=== PATIENT | male | born 1965 | race Caucasian/White ===

== ENCOUNTER 2019-05-08 06:52 | Inpatient (IN) | payer OTHER ==
[2019-05-08] MEDS: SOD CHLORIDE 0.9% 100 ML, TRANEXAMIC ACID 3,000 MG IRR (06:00)
[2019-05-08] MEDS: CEFAZOLIN 2 GM/50 ML (PMX) 50 ML IVPB (06:00)
[2019-05-08] MEDS: GABAPENTIN 300 MG CAP PO ×2 (08:00→20:43)
[2019-05-08] MEDS: DEXAMETHASONE 1 MG TAB PO (08:00)
[2019-05-08] MEDS: LACTATED RINGER'S 1,000 ML IV ×3 (08:17→22:00)
[2019-05-08] MEDS ORDERED: TRANEXAMIC ACID 1GM/100ML(PMX) 0 ML (08:55)
[2019-05-08] MEDS ORDERED: ROCURONIUM 50 MG INJ (08:55)
[2019-05-08] MEDS ORDERED: PROPOFOL 20 ML (08:55)
[2019-05-08] MEDS ORDERED: ROPIVACAINE 0.5 % 30 ML VIAL (08:55)
[2019-05-08] MEDS ORDERED: FENTAnyl 50 MCG/ML VIAL (08:55)
[2019-05-08] MEDS ORDERED: MIDAZOLAM 1 MG/ML 2 ML INJ (08:55)
[2019-05-08] MEDS ORDERED: CEFAZOLIN 1 GM INJ (08:55)
[2019-05-08] MEDS ORDERED: TRANEXAMIC ACID 1GM/100ML(PMX) 200 ML (09:42)
[2019-05-08] MEDS: TRANEXAMIC ACID 1GM/100ML(PMX) 100 ML IVPB (10:02)
[2019-05-08] MEDS ORDERED: HETASTARCH 6% NACL 500 ML (10:24)
[2019-05-08] MEDS: BUPIVACAINE 0.5% (SDV) 30 ML, morphine SULFATE (PF) 8 MG, EPINEPHrine 0.3 MG, KETOROLAC... IRR (10:39)
[2019-05-08] MEDS: THROMBIN 20,000 UNIT VIAL (10:39)
[2019-05-08] MEDS: POLYMYXIN/BACITRACIN 1L IRRIG IRR (10:40)
[2019-05-08] MEDS: CA CHLORIDE 10% 10 ML SYRINGE (10:40)
[2019-05-08] MEDS ORDERED: morphine 2 MG INJ IV ×2 (11:00)
[2019-05-08] MEDS ORDERED: HYDROmorphONE 0.5 MG/0.5 ML SYG IV ×2 (11:00)
[2019-05-08] MEDS ORDERED: HYDROCODONE/APAP (5/325) TAB PO (11:00)
[2019-05-08] MEDS ORDERED: LABETALOL HCL 20MG INJ IV (11:00)
[2019-05-08] MEDS ORDERED: ONDANSETRON 4 MG INJ IV ×2 (11:00)
[2019-05-08] MEDS ORDERED: DIPHENHYDRAMINE 50 MG INJ IV ×3 (11:00→12:00)
[2019-05-08] MEDS ORDERED: NALBUPHINE HCL (10 MG/1 ML) INJ IV (11:00)
[2019-05-08] MEDS ORDERED: OXYCODONE/ACETAMINOPHEN (5/325) TAB PO (11:00)
[2019-05-08] MEDS ORDERED: EPHEDrine 25 MG/5 ML SYG IV (11:00)
[2019-05-08] MEDS ORDERED: MEPERIDINE 25 MG INJ IV (11:00)
[2019-05-08] MEDS ORDERED: KETOROLAC 30 MG INJ IV (11:00)
[2019-05-08] MEDS ORDERED: NALOXONE (0.4 MG/ML) INJ IV (11:00)
[2019-05-08] MEDS ORDERED: FENTAnyl 50 MCG/ML VIAL IV ×2 (11:00)
[2019-05-08] MEDS ORDERED: HYDROmorphONE 1 MG/5 ML IV SYRINGE IV ×2 (11:00)
[2019-05-08] MEDS ORDERED: METOCLOPRAMIDE 10 MG INJ IV (11:00)
[2019-05-08] MEDS ORDERED: ACETAMINOPHEN 500 MG TAB PO (11:00)
[2019-05-08] MEDS ORDERED: KETOROLAC 30 MG INJ (11:07)
[2019-05-08] MEDS ORDERED: ONDANSETRON 4 MG INJ (11:07)
[2019-05-08] MEDS ORDERED: METOCLOPRAMIDE 10 MG INJ (11:07)
[2019-05-08] MEDS ORDERED: DEXAMETHASONE 4 MG/ML 5 ML INJ (11:07)
[2019-05-08] MEDS ORDERED: EPHEDrine 25 MG/5 ML SYG ×2 (11:42)
[2019-05-08] MEDS ORDERED: PHENYLephrine (100 MCG/ML) 10ML SYG (11:42)
[2019-05-08] MEDS ORDERED: GLYCOPYRROLATE 0.4 MG INJ (12:08)
[2019-05-08] MEDS ORDERED: NEOSTIGMINE 3 MG/3 ML SYRINGE (12:08)
[2019-05-08] MEDS: CEFAZOLIN 1 GM/50 ML (PMX) 50 ML IVPB ×2 (12:32→21:17)
[2019-05-08 12:49] LABS: ADD MAN DIFF? NO
[2019-05-08 12:50] LABS: WHITE BLOOD COUNT 10.1 10^3/ul (4.8-10.8)
[2019-05-08 12:50] LABS: ABNORMAL IP MESSAGE 1; BASOPHILS % 0.4 % (0.0-2.0); EOSINOPHILS % 0.2 % (0.0-7.0); HEMATOCRIT 30.6 % (42.0-52.0); HEMOGLOBIN 9.8 g/dl (14.0-18.0); LYMPHOCYTES # 0.3 10^3/ul (0.8-2.9); LYMPHOCYTES % 3.1 % (15.0-51.0); MEAN CORPUSCULAR VOLUME 96.8 fl (82.0-101.0); MONOCYTE # 0.2 10^3/ul (0.3-0.9); MONOCYTES % 1.9 % (0.0-11.0); NEUTROPHIL # 9.4 10^3/ul (1.6-7.5); PLATELET COUNT 239 10^3/UL (140-415); POSITIVE DIFF @See below; RED BLOOD COUNT 3.16 10^6/ul (4.70-6.10); RED CELL DISTRIBUTION WIDTH 12.6 % (11.5-14.5)
[2019-05-08] MEDS: ACETAMINOPHEN 1000MG/100ML IV 100 ML IVPB ×2 (12:59→20:42)
[2019-05-08] MEDS: DEXAMETHASONE 2 MG TAB PO ×2 (14:32→17:21)
[2019-05-08] MEDS: oxyCODONE 5 MG TAB PO ×3 (16:24→22:19)
[2019-05-08] MEDS: SENNA/DOCUSATE NA (8.6MG/50MG) TAB PO (20:42)
[2019-05-09] MEDS: DEXAMETHASONE 2 MG TAB PO ×2 (00:06→06:14)
[2019-05-09] MEDS: HYDROmorphONE 1 MG/ML SYG IV ×4 (00:10→19:34)
[2019-05-09] MEDS: ACETAMINOPHEN 1000MG/100ML IV 100 ML IVPB (04:12)
[2019-05-09] MEDS: oxyCODONE 5 MG TAB PO ×4 (04:15→18:46)
[2019-05-09] MEDS: CEFAZOLIN 1 GM/50 ML (PMX) 50 ML IVPB (04:44)
[2019-05-09 05:13] LABS: ADD MAN DIFF? NO
[2019-05-09 05:20] LABS: WHITE BLOOD COUNT 16.9 10^3/ul (4.8-10.8)
[2019-05-09 05:20] LABS: BASOPHILS % 0.2 % (0.0-2.0); HEMATOCRIT 28.6 % (42.0-52.0); HEMOGLOBIN 9.3 g/dl (14.0-18.0); LYMPHOCYTES # 0.7 10^3/ul (0.8-2.9); MEAN CORPUSCULAR HEMOGLOBIN 31.3 pg (29.0-33.0); MEAN CORPUSCULAR HGB CONC 32.5 g/dl (32.0-37.0); MEAN CORPUSCULAR VOLUME 96.3 fl (82.0-101.0); MEAN PLATELET VOLUME 10.6 fl (7.4-10.4); MONOCYTE # 1.3 10^3/ul (0.3-0.9); MONOCYTES % 7.8 % (0.0-11.0); NEUTROPHIL # 14.7 10^3/ul (1.6-7.5); NEUTROPHILS % 87.2 % (39.0-77.0); PLATELET COUNT 251 10^3/UL (140-415); RED BLOOD COUNT 2.97 10^6/ul (4.70-6.10); RED CELL DISTRIBUTION WIDTH 12.6 % (11.5-14.5)
[2019-05-09] MEDS: ASPIRIN (EC) 325 MG TAB PO (09:17)
[2019-05-09] MEDS: SENNA/DOCUSATE NA (8.6MG/50MG) TAB PO ×2 (09:17→21:35)
[2019-05-09] MEDS: LACTATED RINGER'S 1,000 ML IV ×2 (10:21→17:55)
[2019-05-09] MEDS: NACL 0.9% 3 ML SYG IV (19:36)
[2019-05-09] MEDS: ZOLPIDEM 5 MG TAB PO (21:35)
[2019-05-09] MEDS: GABAPENTIN 300 MG CAP PO (21:35)
[2019-05-10] MEDS: oxyCODONE 5 MG TAB PO ×6 (03:24→21:02)
[2019-05-10] MEDS: LACTATED RINGER'S 1,000 ML IV ×3 (03:55→23:55)
[2019-05-10 05:28] LABS: ADD MAN DIFF? NO
[2019-05-10 05:34] LABS: BASOPHIL # 0.1 10^3/ul (0.0-0.1); BASOPHILS % 0.7 % (0.0-2.0); EOSINOPHILS # 0.1 10^3/ul (0.0-0.5); EOSINOPHILS % 1.3 % (0.0-7.0); HEMATOCRIT 28.9 % (42.0-52.0); HEMOGLOBIN 9.3 g/dl (14.0-18.0); LYMPHOCYTES % 20.8 % (15.0-51.0); MEAN CORPUSCULAR HEMOGLOBIN 31.2 pg (29.0-33.0); MEAN CORPUSCULAR HGB CONC 32.2 g/dl (32.0-37.0); MEAN PLATELET VOLUME 10.7 fl (7.4-10.4); MONOCYTE # 1.3 10^3/ul (0.3-0.9); MONOCYTES % 13.1 % (0.0-11.0); NEUTROPHIL # 6.1 10^3/ul (1.6-7.5); NEUTROPHILS % 63.8 % (39.0-77.0); PLATELET COUNT 230 10^3/UL (140-415); RED BLOOD COUNT 2.98 10^6/ul (4.70-6.10); RED CELL DISTRIBUTION WIDTH 12.7 % (11.5-14.5)
[2019-05-10 05:34] LABS: WHITE BLOOD COUNT 9.5 10^3/ul (4.8-10.8)
[2019-05-10] MEDS: SENNA/DOCUSATE NA (8.6MG/50MG) TAB PO ×2 (08:03→19:58)
[2019-05-10] MEDS: ASPIRIN (EC) 325 MG TAB PO (08:04)
[2019-05-10] MEDS: HYDROmorphONE 1 MG/ML SYG IV ×2 (15:00→19:57)
[2019-05-10] MEDS: GABAPENTIN 300 MG CAP PO (19:58)
[2019-05-10] MEDS: MAGNESIUM HYDROXIDE 30ML CUP PO (19:58)
[2019-05-10] MEDS: ZOLPIDEM 5 MG TAB PO (21:45)
[2019-05-11] MEDS: HYDROmorphONE 1 MG/ML SYG IV ×3 (02:46→18:15)
[2019-05-11 05:23] LABS: ADD MAN DIFF? NO
[2019-05-11 05:37] LABS: BASOPHIL # 0.1 10^3/ul (0.0-0.1); BASOPHILS % 0.5 % (0.0-2.0); EOSINOPHILS % 0.1 % (0.0-7.0); HEMATOCRIT 27.3 % (42.0-52.0); HEMOGLOBIN 9.1 g/dl (14.0-18.0); LYMPHOCYTES # 1.1 10^3/ul (0.8-2.9); LYMPHOCYTES % 9.9 % (15.0-51.0); MEAN CORPUSCULAR HEMOGLOBIN 31.5 pg (29.0-33.0); MEAN CORPUSCULAR HGB CONC 33.3 g/dl (32.0-37.0); MEAN CORPUSCULAR VOLUME 94.5 fl (82.0-101.0); MEAN PLATELET VOLUME 10.5 fl (7.4-10.4); MONOCYTE # 1.4 10^3/ul (0.3-0.9); MONOCYTES % 12.8 % (0.0-11.0); NEUTROPHIL # 8.3 10^3/ul (1.6-7.5); NEUTROPHILS % 76.2 % (39.0-77.0); PLATELET COUNT 239 10^3/UL (140-415); RED BLOOD COUNT 2.89 10^6/ul (4.70-6.10); RED CELL DISTRIBUTION WIDTH 12.3 % (11.5-14.5)
[2019-05-11 05:37] LABS: WHITE BLOOD COUNT 10.9 10^3/ul (4.8-10.8)
[2019-05-11] MEDS: oxyCODONE 5 MG TAB PO ×4 (06:46→19:48)
[2019-05-11] MEDS: SENNA/DOCUSATE NA (8.6MG/50MG) TAB PO ×2 (08:41→21:13)
[2019-05-11] MEDS: ASPIRIN (EC) 325 MG TAB PO (08:41)
[2019-05-11] MEDS: MELOXICAM 15 MG TAB PO (18:12)
[2019-05-11] MEDS: GABAPENTIN 300 MG CAP PO (21:13)
[2019-05-11] MEDS: MAGNESIUM HYDROXIDE 30ML CUP PO (21:13)
[2019-05-11] MEDS: ZOLPIDEM 5 MG TAB PO (21:52)
[2019-05-12 05:18] LABS: ADD MAN DIFF? NO
[2019-05-12 05:20] LABS: BASOPHILS % 0.4 % (0.0-2.0); EOSINOPHILS # 0.2 10^3/ul (0.0-0.5); EOSINOPHILS % 2.1 % (0.0-7.0); HEMATOCRIT 27.8 % (42.0-52.0); HEMOGLOBIN 9.2 g/dl (14.0-18.0); LYMPHOCYTES # 1.3 10^3/ul (0.8-2.9); LYMPHOCYTES % 16.7 % (15.0-51.0); MEAN CORPUSCULAR HEMOGLOBIN 31.3 pg (29.0-33.0); MEAN CORPUSCULAR HGB CONC 33.1 g/dl (32.0-37.0); MEAN CORPUSCULAR VOLUME 94.6 fl (82.0-101.0); MEAN PLATELET VOLUME 10.3 fl (7.4-10.4); MONOCYTES % 13.3 % (0.0-11.0); NEUTROPHIL # 5.1 10^3/ul (1.6-7.5); NEUTROPHILS % 67.1 % (39.0-77.0); PLATELET COUNT 262 10^3/UL (140-415); RED BLOOD COUNT 2.94 10^6/ul (4.70-6.10); RED CELL DISTRIBUTION WIDTH 12.4 % (11.5-14.5)
[2019-05-12 05:20] LABS: WHITE BLOOD COUNT 7.7 10^3/ul (4.8-10.8)
[2019-05-12] MEDS: MAGNESIUM HYDROXIDE 30ML CUP PO ×2 (06:00→21:06)
[2019-05-12] MEDS: HYDROmorphONE 1 MG/ML SYG IV ×3 (06:01→15:50)
[2019-05-12] MEDS: ASPIRIN (EC) 325 MG TAB PO (08:41)
[2019-05-12] MEDS: oxyCODONE 5 MG TAB PO ×3 (08:41→21:07)
[2019-05-12] MEDS: MELOXICAM 15 MG TAB PO (08:41)
[2019-05-12] MEDS: SENNA/DOCUSATE NA (8.6MG/50MG) TAB PO ×2 (08:41→21:06)
[2019-05-12] MEDS: GABAPENTIN 300 MG CAP PO (21:06)
[2019-05-13 05:02] LABS: ADD MAN DIFF? NO
[2019-05-13 05:07] LABS: WHITE BLOOD COUNT 6.9 10^3/ul (4.8-10.8)
[2019-05-13 05:07] LABS: BASOPHILS % 0.6 % (0.0-2.0); EOSINOPHILS # 0.3 10^3/ul (0.0-0.5); EOSINOPHILS % 3.6 % (0.0-7.0); HEMATOCRIT 29.2 % (42.0-52.0); HEMOGLOBIN 9.3 g/dl (14.0-18.0); LYMPHOCYTES # 1.3 10^3/ul (0.8-2.9); LYMPHOCYTES % 18.2 % (15.0-51.0); MEAN CORPUSCULAR HEMOGLOBIN 30.6 pg (29.0-33.0); MEAN CORPUSCULAR HGB CONC 31.8 g/dl (32.0-37.0); MEAN CORPUSCULAR VOLUME 96.1 fl (82.0-101.0); MONOCYTE # 1.1 10^3/ul (0.3-0.9); MONOCYTES % 16.1 % (0.0-11.0); NEUTROPHIL # 4.2 10^3/ul (1.6-7.5); NEUTROPHILS % 60.6 % (39.0-77.0); PLATELET COUNT 298 10^3/UL (140-415); RED BLOOD COUNT 3.04 10^6/ul (4.70-6.10); RED CELL DISTRIBUTION WIDTH 12.2 % (11.5-14.5)
[2019-05-13] MEDS: oxyCODONE 5 MG TAB PO ×3 (06:34→18:34)
[2019-05-13] MEDS: SENNA/DOCUSATE NA (8.6MG/50MG) TAB PO ×2 (08:33→21:09)
[2019-05-13] MEDS: MELOXICAM 15 MG TAB PO (08:33)
[2019-05-13] MEDS: ASPIRIN (EC) 325 MG TAB PO (08:33)
[2019-05-13] MEDS: ONDANSETRON 4 MG INJ IV (10:19)
[2019-05-13] MEDS: GABAPENTIN 300 MG CAP PO (21:09)
[2019-05-13] MEDS: ZOLPIDEM 5 MG TAB PO (21:09)
[2019-05-13] MEDS: MAGNESIUM HYDROXIDE 30ML CUP PO (21:09)
[2019-05-14 04:59] LABS: ADD MAN DIFF? NO
[2019-05-14 05:11] LABS: BASOPHILS % 0.6 % (0.0-2.0); EOSINOPHILS # 0.3 10^3/ul (0.0-0.5); EOSINOPHILS % 3.8 % (0.0-7.0); HEMATOCRIT 30.5 % (42.0-52.0); HEMOGLOBIN 9.6 g/dl (14.0-18.0); LYMPHOCYTES # 1.3 10^3/ul (0.8-2.9); LYMPHOCYTES % 19.1 % (15.0-51.0); MEAN CORPUSCULAR HEMOGLOBIN 30.3 pg (29.0-33.0); MEAN CORPUSCULAR HGB CONC 31.5 g/dl (32.0-37.0); MEAN CORPUSCULAR VOLUME 96.2 fl (82.0-101.0); NEUTROPHIL # 4.2 10^3/ul (1.6-7.5); NEUTROPHILS % 61.5 % (39.0-77.0); PLATELET COUNT 339 10^3/UL (140-415); RED BLOOD COUNT 3.17 10^6/ul (4.70-6.10)
[2019-05-14 05:11] LABS: WHITE BLOOD COUNT 6.8 10^3/ul (4.8-10.8)
[2019-05-14] MEDS: oxyCODONE 5 MG TAB PO ×4 (05:53→20:21)
[2019-05-14] MEDS: ASPIRIN (EC) 325 MG TAB PO (08:47)
[2019-05-14] MEDS: SENNA/DOCUSATE NA (8.6MG/50MG) TAB PO ×2 (08:47→20:21)
[2019-05-14] MEDS: MELOXICAM 15 MG TAB PO (08:47)
[2019-05-14] MEDS: MAGNESIUM HYDROXIDE 30ML CUP PO (20:21)
[2019-05-14] MEDS: GABAPENTIN 300 MG CAP PO (20:21)
[2019-05-15] MEDS: MELOXICAM 15 MG TAB PO (08:19)
[2019-05-15] MEDS: oxyCODONE 5 MG TAB PO ×2 (08:19→16:26)
[2019-05-15] MEDS: SENNA/DOCUSATE NA (8.6MG/50MG) TAB PO (08:19)
[2019-05-15] MEDS: ASPIRIN (EC) 325 MG TAB PO (08:20)
== END 2019-05-15 17:15 | disposition home or self-care (01) | DRG 470 ==
LOC: REC 06:52 → MS1 13:38
PROVIDERS: Orthopaedic Surgery
PROC: 0SRB04A Replacement of Left Hip Joint with Ceramic on Polyethylene Synthetic Substitute, Uncemented, Open Approach (ICD-10-PCS; principal; 2019-05-08 09:30)
DX: M16.12 Unilateral primary osteoarthritis, left hip (principal); F10.10 Alcohol abuse, uncomplicated
CPT/HCPCS: 72170; 73530; 73562; 85025; 86999; 87070; 87075; 87086; 87102; 87116; 88304; 88311; 97110; 97116; 97162; 97167; 97530